=== PATIENT | male | born 1955 | race Caucasian/White ===

== ENCOUNTER 2016-08-19 06:25 | Day surgery (SDC) | payer BC ==
[2016-08-19] MEDS ORDERED: Sodium Chloride 0.9% 1,000 ML IV SCH (07:00)
[2016-08-19] MEDS ORDERED: fentaNYL 100 MCG/2 ML SDV ONE (07:40)
[2016-08-19] MEDS ORDERED: Midazolam 1 MG/ML 2 ML SDV ONE (07:40)
[2016-08-19] MEDS ORDERED: Propofol 200 MG/20 ML SDV ONE (07:40)
[2016-08-19 09:25] VITALS: BP 133/83
--- NOTE | 2016-08-20 09:04 | OR ---
DATE OF PROCEDURE: 08/19/2016 PROCEDURE: Colonoscopy. FINDINGS: Normal colonoscopy. COMPLICATIONS: None. BLEACH MIXER: None. ANESTHESIA: MAC. PREOPERATIVE DIAGNOSIS: Screening colonoscopy. POSTOPERATIVE DIAGNOSIS: Screening colonoscopy. INDICATIONS: Risks, benefits, alternatives, and limitations, including, but not limited to infection, bleeding, and perforation were explained to the patient who wished to proceed. PROCEDURE IN DETAIL: The patient was placed in the left lateral decubitus position. Digital rectal exam was performed without abnormality. The scope was introduced and advanced atraumatically to the ileocecal valve. The scope was brought back to the ascending, transverse, descending colon, and retroflexed. No old or new blood. No masses. No polyps. The patient had one very small diverticulum. No abnormalities on retroflexion. The patient tolerated the procedure well. Huseyin Tucker MD /[id number]
--- NOTE | 2016-08-20 09:07 | LETTER ---
08/19/2016 Robi Sanchez [id number] [place] [address] RE: LESTERROBI SUSY : 1955 Dear Robi: I am writing this letter in regard to your recent colonoscopy. As we discussed after the procedure, your colonoscopy was normal. There was no evidence of polyps, blood vessel problems, or cancer. You will need another colonoscopy in 8 years, as new polyps can occur. We will send you a reminder letter in approximately 8 years, but it is your responsibility to arrange the repeat colonoscopy with your primary care physician, as people move and addresses change, etc. Also, please keep in mind no test is perfect and colonoscopies are no exception. In fact, they can miss up to 10 percent of positive findings including colon cancer. I tell you this not to scare you but to protect you. What to look for is ongoing bleeding, severe changes in bowel function (not occasional diarrhea or constipation) and unintentional weight loss. Again I don't think you will have any problems I just want you to be safe. One last thing I recommend is you should be trying to eat a healthy diet that is high in fiber and low in fat. It is important to eat more fruits and vegetables, avoid smoking, limit alcohol intake, increase exercise, and increase calcium and folate intake. Foods that are rich in calcium include most dairy products, for example, milk and cheese. Foods that are rich in folate are chickpeas, kidney beans, and spinach. If you have any questions, please give me or your primary doctor a call and thank you for allowing me to be your surgeon. /[id number]
== END 2016-08-19 09:20 | disposition home or self-care (01) ==
LOC: JP.SDS 06:25
PROVIDERS: ATTEND Surgery
DX: Z12.11 Encounter for screening for malignant neoplasm of colon (principal); K21.9 Gastro-esophageal reflux disease without esophagitis
CPT/HCPCS: 45378; J2250; J2704; J3010; J7040